=== PATIENT | male | born 1940 | race Caucasian/White ===

== ENCOUNTER → 2019-04-29 | Outpatient (REF) | payer SELFPAY | LOC: M SMT 12:43 | PROVIDERS: ATTEND Nurse Practitioner Family | DX: R97.20 Elevated prostate specific antigen [PSA] (principal) ==

== ENCOUNTER → 2019-11-01 | Outpatient (CLI) | payer MEDICARE ==
--- NOTE | 2019-11-01 10:31 | REP ---
RENAL ULTRASOUND: Real-time sonographic evaluation of the kidneys is performed. Both kidneys are normal in size and echotexture right kidney measuring 1.5 x 5.4 x 6.2 cm and left kidney 11.5 x 5.4 x 5.4 cm. There is no renal mass, hydronephrosis or nephrolithiasis. IMPRESSION: Negative renal ultrasound. Electronically Signed by Kennedy Watson MD 11/01/2019 10:57 A
--- NOTE | 2019-11-01 10:35 | REP ---
URINARY BLADDER ULTRASOUND: Real-time sonographic evaluation of the urinary bladder was performed. Bladder measures 11.0 x 8.1 x 7.2 cm for a total volume of 419 mL. Post void residual is 195 mL which is 47% of the original volume. Bladder wall appears slightly trabeculated without evidence of mass or calculus. Ureteral jets are seen in the urinary bladder with Doppler color evaluation. The prostate measures 4.5 x 4.7 x 4.9 cm. IMPRESSION: Bladder wall may be slightly trabeculated. Post void residual 47%. Ureteral jets visualized. Prostate volume 54 mL. Electronically Signed by Kennedy Watson MD 11/01/2019 10:58 A
== END ==
LOC: M RAD 08:55
PROVIDERS: ATTEND Nurse Practitioner Family
DX: N39.0 Urinary tract infection, site not specified (principal)